=== PATIENT | female | born 1980 | race Two or more races ===

== ENCOUNTER 2016-05-07 19:17 | Emergency (ER) | payer MEDICAID ==
[~2016-05-07] VITALS: Ht 149.9 cm; Wt 72.6 kg
[2016-05-07] MEDS ORDERED: MORPHINE SULFATE INJ 4 MG/ML DISP.SYRIN ONE (20:12)
[2016-05-07] MEDS ORDERED: ONDANSETRON HCL/PF 4 MG/2 ML VIAL ONE (20:12)
[2016-05-07 20:20] LABS: KETONES,URINE Negative (NEGATIVE); LEUKOCYTE ESTERASE ,URINE Negative (NEGATIVE)
[2016-05-07 20:21] LABS: BASOPHILS % (AUTO) 0.4 % (0.0-2.0); DIFF TOTAL % 100 %; EOSINOPHILS # (AUTO) 0.2 /CMM (0.0-0.7); EOSINOPHILS % (AUTO) 1.9 % (0.0-6.0); HEMATOCRIT 34 % (33-45); HEMOGLOBIN 11.6 g/dL (11.5-14.8); LYMPHOCYTES # (AUTO) 2.9 /CMM (0.8-4.8); LYMPHOCYTES % (AUTO) 29.6 % (20.0-44.0); MEAN CORPUSCULAR HEMOGLOBIN 31 PG (26.0-33.0); MEAN CORPUSCULAR HGB CONC 34 g/dl (31.0-36.0); MEAN CORPUSCULAR VOLUME 89 fL (82-100); MONOCYTES # (AUTO) 0.9 /CMM (0.1-1.30); MONOCYTES % (AUTO) 9.3 % (2.0-12.0); NEUTROPHILS # (AUTO) 5.9 /CMM (1.8-8.9); NEUTROPHILS % (AUTO) 58.8 % (43.0-81.0); PLATELET COUNT (AUTO) 178 /CMM (150-450); RED BLOOD CELL COUNT(AUTO) 3.79 MIL/uL (4.0-5.2); WHITE BLOOD COUNT (AUTO) 9.9 K/uL (4.3-11.0)
[2016-05-07 20:23] LABS: ADD UA MICROSCOPIC YES
[2016-05-07 20:30] LABS: CALCIUM, SERUM 9.1 mg/dL (8.5-10.1); CREATININE 0.6 mg/dL (0.6-1.3)
[2016-05-07] MEDS ORDERED: ONDANSETRON HCL/PF 4 MG/2 ML VIAL IV ONE (20:30)
[2016-05-07] MEDS ORDERED: MORPHINE SULFATE INJ 2 MG/ML DISP.SYRIN IV ONE (20:30)
[2016-05-07 20:31] LABS: PREGNANCY TEST URINE QUAL NEGATIVE (NEGATIVE)
[2016-05-07 20:33] LABS: ADD URINE CULTURE NO; RBC,URINE 0-2 /HPF (0-2); WBC,URINE 0-2 /HPF (0-3)
[2016-05-07 20:40] LABS: ALBUMIN 3.8 g/dL (3.4-5.0); BILIRUBIN,DIRECT 0.1 mg/dL (0.0-0.2); BILIRUBIN,TOTAL 0.3 mg/dL (0.2-1.0); INDIRECT BILIRUBIN 0.2 mg/dL (0.0-1.1); TOTAL PROTEIN, SERUM 7.9 g/dL (6.4-8.2)
[2016-05-07] MEDS ORDERED: KETOROLAC TROMETHAMINE INJ 30 MG/ML VIAL IV ONE (21:30)
[2016-05-07] MEDS ORDERED: KETOROLAC TROMETHAMINE INJ 30 MG/ML VIAL ONE (21:38)
[2016-05-07 21:46] VITALS: BP 127/73
== END 2016-05-07 21:49 | disposition home or self-care (01) ==
LOC: ER 19:21
DX: R10.84 Generalized abdominal pain (principal)
CPT/HCPCS: 36415; 74176; 80048; 80076; 81001; 83690; 84703; 85025; 96374; 96375; 99285; A4606; J1885; J2270; J2405; Z7610; 81000-TC

== ENCOUNTER 2016-08-07 15:27 | Emergency (ER) | payer MEDICAID ==
[~2016-08-07] VITALS: Ht 144.8 cm; Wt 72.6 kg
--- NOTE | 2016-08-07 15:51 | NUR ---
PRESENTS SELF TO ED DUE TO RIGHT KNEE SWELLING X4 DAYS PRESSER AND BLOCKER KNITTED GOODS, NON TRAUMATIC. PATIENT IS AMBULATORY. VSS.
[2016-08-07] MEDS ORDERED: KETOROLAC TROMETHAMINE INJ 60 MG/2 ML VIAL IM ONE ×2 (16:29→16:30)
--- NOTE | 2016-08-07 17:48 | NUR ---
Patient is resting comfortably in bed VSS
[2016-08-07 18:09] VITALS: BP 112/78
--- NOTE | 2016-08-07 18:09 | NUR ---
Patient discharged to home in stable condition. Written and verbal after care instructions given. Patient verbalizes understanding of instruction.
== END 2016-08-07 18:10 | disposition home or self-care (01) ==
LOC: ER 15:29
DX: R51 Headache (principal); M79.641 Pain in right hand; M79.605 Pain in left leg; M79.604 Pain in right leg; R20.2 Paresthesia of skin
CPT/HCPCS: 70450; 82962; 84703; 96372; 99284; A4606; J1885; Z7610

== ENCOUNTER 2016-11-30 21:01 | Emergency (ER) | payer MEDICAID ==
[~2016-11-30] VITALS: Ht 157.5 cm; Wt 59.0 kg
--- NOTE | 2016-12-01 | NUR ---
PT BIB FAMILY, PT C/O BOTH OF HER HANDS FALLING ASLEEP AND HURTING X 5 DAYS. PT AOX3 [place]TS[place] SPEAKING. RR EVEN AND UNLABORED. NO SOB NOTED. NAD NOTED. NO NVD AT THIS JULIO.E PT GOWNED AND PLACED ON MONITOR WAITING FOR MD FLORES.
--- NOTE | 2016-12-01 00:10 | NUR ---
DR. RAIN AT BEDSIDE FOR COLLEEN FLORES, EMT AT BEDSIDE TO TRANSLATE.
--- NOTE | 2016-12-01 00:10 | NUR ---
Charles allen in [place] - 12/01/[address] RAIN AT [facility] FOR
[2016-12-01 00:48] LABS: BASOPHILS % (AUTO) 0.3 % (0.0-2.0); EOSINOPHILS # (AUTO) 0.2 /CMM (0.0-0.7); EOSINOPHILS % (AUTO) 1.9 % (0.0-6.0); HEMATOCRIT 33 % (33-45); HEMOGLOBIN 10.9 g/dL (11.5-14.8); LYMPHOCYTES # (AUTO) 3.3 /CMM (0.8-4.8); LYMPHOCYTES % (AUTO) 38.6 % (20.0-44.0); MEAN CORPUSCULAR HEMOGLOBIN 30 PG (26.0-33.0); MEAN CORPUSCULAR HGB CONC 33 g/dl (31.0-36.0); MEAN CORPUSCULAR VOLUME 91 fL (82-100); MONOCYTES # (AUTO) 0.7 /CMM (0.1-1.30); MONOCYTES % (AUTO) 8.2 % (2.0-12.0); NEUTROPHILS # (AUTO) 4.4 /CMM (1.8-8.9); PLATELET COUNT (AUTO) 185 /CMM (150-450); RDW COEFFICIENT OF VARIATION 14.5 (11.5-15.0); RED BLOOD CELL COUNT(AUTO) 3.62 MIL/uL (4.0-5.2); WHITE BLOOD COUNT (AUTO) 8.7 K/uL (4.3-11.0)
[2016-12-01 01:05] LABS: CALCIUM, SERUM 8.6 mg/dL (8.5-10.1); CREATININE 0.7 mg/dL (0.6-1.3); POTASSIUM 3.9 mmol/L (3.5-5.1)
--- NOTE | 2016-12-01 01:56 | NUR ---
PT TO RADIOLOGY FOR CT
--- NOTE | 2016-12-01 02:52 | NUR ---
DR RAIN AT BEDSIDE SPEAKING TO PT REGARDING RESULTS.
[2016-12-01 03:16] VITALS: BP 112/68
--- NOTE | 2016-12-01 03:22 | NUR ---
IV removed. Catheter intact and site benign. Pressure and 4x4 applied to site. No bleeding noted. Patient discharged to home in stable condition. Written and verbal after care instructions given. Patient verbalizes understanding of instruction. ambulatory with a steady gait. instructed not to drive. pt verbalize understanding.
== END 2016-12-01 03:23 | disposition home or self-care (01) ==
LOC: ER 21:04
DX: M54.12 Radiculopathy, cervical region (principal); M79.1 Myalgia
CPT/HCPCS: 36415; 72125-TC; 80048-TC; 85025-TC; 93930-TC; 93971-TC; A4606; J2270; J2405; J7040; J7050; Q9967; Z7610

== ENCOUNTER 2017-09-01 14:01 | Emergency (ER) | payer MEDICAID, OTHER ==
[~2017-09-01] VITALS: Ht 149.9 cm; Wt 72.6 kg
--- NOTE | 2017-09-01 14:09 | NUR ---
A/OX4, RT FLANK PAIN GOING TO RT LOWER ABD X 1 MONTH, ALSO COMPLAINING OF VAGINAL AREA SWELLING AND DSICHARGE X YESTERDAY. NAD VSS RR EVEN AND UNLABORED FACIAL GRIAMCING NOTED PENINGD ER MD FLORES;
--- NOTE | 2017-09-01 15:10 | NUR ---
IV ACCESS STARTED. BLOOD DRAWN FOR LABS.
[2017-09-01] MEDS ORDERED: ONDANSETRON HCL/PF 4 MG/2 ML VIAL ONE (15:14)
[2017-09-01] MEDS ORDERED: MORPHINE SULFATE INJ 4 MG/ML DISP.SYRIN ONE (15:14)
[2017-09-01 15:16] LABS: APPEARANCE,URINE Clear (CLEAR); BILIRUBIN,URINE Negative (NEGATIVE); BLOOD, URINE Negative Ery/uL (NEGATIVE); COLOR,URINE Yellow (YELLOW); KETONES,URINE Negative (NEGATIVE); LEUKOCYTE ESTERASE ,URINE Negative (NEGATIVE); NITRITE, URINE Negative (NEGATIVE); PROTEIN,URINE Negative (NEGATIVE); UGLUCOSE Negative (NEGATIVE); UROBILINOGEN,URINE 0.2 EU/dL (0.2)
[2017-09-01 15:29] LABS: BASOPHILS % (AUTO) 0.3 % (0.0-2.0); EOSINOPHILS % (AUTO) 1.5 % (0.0-6.0); HEMATOCRIT 33 % (33-45); HEMOGLOBIN 11.3 g/dL (11.5-14.8); LYMPHOCYTES # (AUTO) 2.4 /CMM (0.8-4.8); MEAN CORPUSCULAR HEMOGLOBIN 31 PG (26.0-33.0); MEAN CORPUSCULAR HGB CONC 35 g/dl (31.0-36.0); MEAN CORPUSCULAR VOLUME 91 fL (82-100); MONOCYTES # (AUTO) 0.8 /CMM (0.1-1.30); MONOCYTES % (AUTO) 9.4 % (2.0-12.0); NEUTROPHILS % (AUTO) 59.8 % (43.0-81.0); PLATELET COUNT (AUTO) 200 /CMM (150-450); RDW COEFFICIENT OF VARIATION 13.9 (11.5-15.0); RED BLOOD CELL COUNT(AUTO) 3.62 MIL/uL (4.0-5.2); WHITE BLOOD COUNT (AUTO) 8.3 K/uL (4.3-11.0)
[2017-09-01] MEDS ORDERED: MORPHINE SULFATE INJ 2 MG/ML DISP.SYRIN IV ONE (15:30)
[2017-09-01] MEDS ORDERED: ONDANSETRON HCL/PF 4 MG/2 ML VIAL IVP ONE (15:30)
[2017-09-01 15:41] LABS: CALCIUM, SERUM 9.4 mg/dL (8.5-10.1); CREATININE 0.6 mg/dL (0.6-1.3)
[2017-09-01 15:47] LABS: ALBUMIN 3.6 g/dL (3.4-5.0); BILIRUBIN,DIRECT 0.1 mg/dL (0.0-0.2); BILIRUBIN,TOTAL 0.3 mg/dL (0.2-1.0); TOTAL PROTEIN, SERUM 7.4 g/dL (6.4-8.2)
[2017-09-01] MEDS ORDERED: HYDROMORPHONE INJ 0.5 MG/0.5 ML SYRINGE IV ONE (16:00)
[2017-09-01] MEDS ORDERED: HYDROMORPHONE INJ 2 MG/ML DISP.SYRIN ONE (16:34)
[2017-09-01] MEDS ORDERED: KETOROLAC TROMETHAMINE INJ 30 MG/ML VIAL IV ONE (17:00)
[2017-09-01] MEDS ORDERED: KETOROLAC TROMETHAMINE INJ 30 MG/ML VIAL ONE (17:07)
--- NOTE | 2017-09-01 17:46 | NUR ---
Paged Dr Velez, Dr Brennan is talking on the phone with her.
[2017-09-01] MEDS ORDERED: AZITHROMYCIN 250 MG TABLET PO ONE (18:00)
[2017-09-01] MEDS ORDERED: CEFTRIAXONE 500 MG VIAL IM ONE (18:00)
[2017-09-01] MEDS ORDERED: CEFTRIAXONE 500 MG VIAL ONE (18:02)
[2017-09-01] MEDS ORDERED: AZITHROMYCIN 250 MG TABLET ONE (18:02)
[2017-09-01] MEDS ORDERED: LIDOCAINE /MPF 1% VIAL 5 ML VIAL ONE (18:03)
--- NOTE | 2017-09-01 18:28 | NUR ---
Patient discharged to home in stable condition. Written and verbal after care instructions given. Patient verbalizes understanding of instruction.
--- NOTE | 2017-09-01 18:28 | NUR ---
IV removed. Catheter intact and site benign. Pressure and 4x4 applied to site. No bleeding noted.
[2017-09-01 18:31] VITALS: BP 112/71
== END 2017-09-01 18:33 | disposition home or self-care (01) ==
LOC: ER 14:04
DX: R10.31 Right lower quadrant pain (principal); N89.8 Other specified noninflammatory disorders of vagina; Z88.6 Allergy status to analgesic agent; Z98.890 Other specified postprocedural states
CPT/HCPCS: 36415; 76770-TC; 76856-TC; 80048-TC; 80076-TC; 81000-TC; 84703-TC; 85025-TC; 87086-TC; 87491; 87591; A4606; J0696; J1170; J1885; J2270; J2405; J3490; Z7610

== ENCOUNTER 2018-12-22 20:08 | Emergency (ER) | payer OTHER ==
[~2018-12-22] VITALS: Ht 152.4 cm; Wt 77.1 kg
[2018-12-22 20:14] VITALS: BP 125/73
--- NOTE | 2018-12-22 20:21 | NUR ---
SEEN AND EXAMINED BY
--- NOTE | 2018-12-22 20:31 | NUR ---
PEDIATRICS PHYSICIAN AT BEDSIDE FOR XRAY.
[2018-12-22] MEDS ORDERED: IBUPROFEN 600 MG TABLET PO ONE ×2 (20:49→21:00)
--- NOTE | 2018-12-22 21:26 | NUR ---
Patient discharged to home in stable condition. Written and verbal after care instructions given. Patient verbalizes understanding of instruction.
== END 2018-12-22 21:27 | disposition home or self-care (01) ==
LOC: ER 20:15
DX: S63.592A Other specified sprain of left wrist, initial encounter (principal); Z98.890 Other specified postprocedural states; Z88.5 Allergy status to narcotic agent; X58.XXXA Exposure to other specified factors, initial encounter; Y93.89 Activity, other specified; Y92.89 Other specified places as the place of occurrence of the external cause; Y99.8 Other external cause status
CPT/HCPCS: 73110; 73130-TC

== ENCOUNTER 2019-01-08 13:06 | Emergency (ER) | payer OTHER ==
[~2019-01-08] VITALS: Ht 152.4 cm; Wt 79.8 kg
--- NOTE | 2019-01-08 13:43 | NUR ---
URINE SAMPLE COLLECTED AND SENT TO LAB
[2019-01-08 13:49] LABS: APPEARANCE,URINE Clear (CLEAR); BILIRUBIN,URINE Negative (NEGATIVE); BLOOD, URINE Trace-intact Ery/uL (NEGATIVE); COLOR,URINE Yellow (YELLOW); KETONES,URINE Negative (NEGATIVE); LEUKOCYTE ESTERASE ,URINE Negative (NEGATIVE); NITRITE, URINE Negative (NEGATIVE); PROTEIN,URINE Negative (NEGATIVE); UGLUCOSE Negative (NEGATIVE); UROBILINOGEN,URINE 0.2 EU/dL (0.2)
[2019-01-08 13:53] LABS: BACTERIA,URINE None seen /HPF (None Seen); RBC,URINE 0-2 /HPF (0-2); SQUAMOUS EPITHELIAL CELL,UR Few /HPF (None Seen); WBC,URINE NONE SEEN /HPF (0-3)
[2019-01-08] MEDS ORDERED: KETOROLAC TROMETHAMINE INJ 30 MG/ML VIAL IV ONE (14:30)
[2019-01-08] MEDS ORDERED: MORPHINE SULFATE INJ 2 MG/ML DISP.SYRIN IV ONE (14:30)
[2019-01-08 14:39] LABS: BASOPHILS % (AUTO) 0.3 % (0.0-2.0); EOSINOPHILS % (AUTO) 2.2 % (0.0-6.0); HEMATOCRIT 35 % (33-45); HEMOGLOBIN 11.7 g/dL (11.5-14.8); LYMPHOCYTES # (AUTO) 2.2 /CMM (0.8-4.8); LYMPHOCYTES % (AUTO) 25.8 % (20.0-44.0); MEAN CORPUSCULAR HGB CONC 34 g/dl (31.0-36.0); MEAN CORPUSCULAR VOLUME 94 fL (82-100); MONOCYTES # (AUTO) 0.7 /CMM (0.1-1.30); MONOCYTES % (AUTO) 8.3 % (2.0-12.0); NEUTROPHILS # (AUTO) 5.3 /CMM (1.8-8.9); NEUTROPHILS % (AUTO) 63.4 % (43.0-81.0); PLATELET COUNT (AUTO) 176 /CMM (150-450); RED BLOOD CELL COUNT(AUTO) 3.69 MIL/uL (4.0-5.2); WHITE BLOOD COUNT (AUTO) 8.4 K/uL (4.3-11.0)
--- NOTE | 2019-01-08 14:39 | NUR ---
WHEELED OUT VIA RNEY FOR CT SCAN
[2019-01-08] MEDS ORDERED: ONDANSETRON HCL/PF 4 MG/2 ML VIAL ONE (14:52)
[2019-01-08] MEDS ORDERED: KETOROLAC TROMETHAMINE 15 MG/ML VIAL ONE (14:52)
[2019-01-08] MEDS ORDERED: MORPHINE SULFATE INJ 4 MG/ML DISP.SYRIN ONE (14:52)
[2019-01-08] MEDS ORDERED: ONDANSETRON HCL/PF 4 MG/2 ML VIAL IV ONE (15:00)
[2019-01-08 15:06] LABS: CALCIUM, SERUM 9.3 mg/dL (8.5-10.1); CREATININE 0.6 mg/dL (0.6-1.3); POTASSIUM 3.7 mmol/L (3.5-5.1)
[2019-01-08 15:11] LABS: ALBUMIN 3.7 g/dL (3.4-5.0); BILIRUBIN,DIRECT 0.1 mg/dL (0.0-0.2); BILIRUBIN,TOTAL 0.3 mg/dL (0.2-1.0); TOTAL PROTEIN, SERUM 7.6 g/dL (6.4-8.2)
--- NOTE | 2019-01-08 16:42 | NUR ---
IV removed. Catheter intact and site benign. Pressure and 4x4 applied to site. No bleeding noted.Patient discharged to home in stable condition. Written and verbal after care instructions given. Patient verbalizes understanding of instruction.
[2019-01-08 16:59] VITALS: BP 106/65
== END 2019-01-08 15:32 | disposition home or self-care (01) ==
LOC: ER 13:06
DX: R10.9 Unspecified abdominal pain (principal); Z87.442 Personal history of urinary calculi; Z98.890 Other specified postprocedural states
CPT/HCPCS: 36415; 74176; 80048; 80076; 81001; 83690; 84703; 85025; 96374; 96375; 99284; J1885; J2270; J2405; 81000-TC

== ENCOUNTER 2021-01-12 23:40 | Emergency (ER) | payer OTHER ==
[~2021-01-12] VITALS: Ht 152.4 cm; Wt 77.1 kg
--- NOTE | 2021-01-13 00:40 | NUR ---
PT BIBSELF C/O MIDEPIGASTRIC PAIN, BODY ACHES, AND DIAHRREA X1 DAY. PT AAOX 4 BREATHING EVENLY AND UNLABORED. PT TOOK 800MG IBUPROFEN, BUT FELT NO RELIEF. PT ATTACHED TO MONITOR AND POX. MD AT BEDSIDE. LEFT AC 20G INITIATED. PT GIVE BLANKET AND CALL LIGHT WITHIN REACH
[2021-01-13] MEDS ORDERED: ONDANSETRON HCL/PF 4 MG/2 ML VIAL ONE (00:51)
[2021-01-13] MEDS ORDERED: MORPHINE SULFATE INJ 4 MG/ML DISP.SYRIN ONE (00:51)
[2021-01-13] MEDS ORDERED: IV NS 0.9% 1,000 ML BAG IV ONE (01:00)
[2021-01-13] MEDS ORDERED: ONDANSETRON HCL/PF 4 MG/2 ML VIAL IVP ONE (01:00)
[2021-01-13] MEDS ORDERED: MORPHINE SULFATE INJ 2 MG/ML DISP.SYRIN IV ONE (01:00)
--- NOTE | 2021-01-13 01:03 | NUR ---
lab at bedside
[2021-01-13 01:30] LABS: BASOPHILS % (AUTO) 0.2 % (0.0-2.0); EOSINOPHILS % (AUTO) 2.6 % (0.0-6.0); HEMATOCRIT 31 % (33-45); HEMOGLOBIN 10.1 g/dL (11.5-14.8); LYMPHOCYTES % (AUTO) 29.9 % (20.0-44.0); MEAN CORPUSCULAR HGB CONC 33 g/dl (31.0-36.0); MEAN CORPUSCULAR VOLUME 97 fL (82-100); MONOCYTES # (AUTO) 0.6 K/uL (0.1-1.30); MONOCYTES % (AUTO) 8.6 % (2.0-12.0); NEUTROPHILS # (AUTO) 3.9 K/uL (1.8-8.9); NEUTROPHILS % (AUTO) 58.7 % (43.0-81.0); PLATELET COUNT (AUTO) 161 K/uL (150-450); RED BLOOD CELL COUNT(AUTO) 3.17 MIL/uL (4.0-5.2); WHITE BLOOD COUNT (AUTO) 6.6 K/uL (4.3-11.0)
[2021-01-13 01:41] LABS: ALANINE AMINOTRANSFERASE 59 U/L (12-78); ALBUMIN 3.4 g/dL (3.4-5.0); ALKALINE PHOSPHATASE 76 U/L (46-116); ASPARTATE AMINOTRANSFERASE 45 U/L (15-37); BILIRUBIN,DIRECT 0.1 mg/dL (0.0-0.2); BILIRUBIN,TOTAL 0.4 mg/dL (0.2-1.0); CALCIUM, SERUM 8.2 mg/dL (8.5-10.1); CARBON DIOXIDE 25 mmol/L (21-32); CHLORIDE 105 mmol/L (98-107); CREATININE 0.7 mg/dL (0.6-1.3); GLUCOSE 90 mg/dL (74-106); LIPASE 80 U/L (73-393); POTASSIUM 3.6 mmol/L (3.5-5.1); SODIUM SERUM 140 mmol/L (136-145); TOTAL PROTEIN, SERUM 7.3 g/dL (6.4-8.2); UREA NITROGEN, BLOOD 15 mg/dL (7-18)
--- NOTE | 2021-01-13 01:44 | NUR ---
covid swab sent to lab
[2021-01-13 01:50] LABS: BILIRUBIN,URINE NEGATIVE (NEGATIVE); COLOR,URINE YELLOW (YELLOW); LEUKOCYTE ESTERASE ,URINE NEGATIVE (NEGATIVE); NITRITE, URINE NEGATIVE (NEGATIVE); PH,URINE 6.5 (5.0-8.0); PROTEIN,URINE NEGATIVE (NEGATIVE); UGLUCOSE NEGATIVE (NEGATIVE); UROBILINOGEN,URINE 0.2 EU/dL (0.2)
--- NOTE | 2021-01-13 02:11 | NUR ---
returned from xray
--- NOTE | 2021-01-13 03:23 | NUR ---
called seth to have image read
[2021-01-13] MEDS ORDERED: PANT40TA2 PO (04:51)
--- NOTE | 2021-01-13 04:54 | NUR ---
Patient discharged to home in stable condition. Written and verbal after care instructions given. Patient verbalizes understanding of instruction. IV removed. Catheter intact and site benign. Pressure and 4x4 applied to site. No bleeding noted. pt ambulatory with a steady gait
[2021-01-13 05:05] VITALS: BP 118/78
[2021-01-13 07:01] LABS: BACTERIA,URINE Few /HPF (None Seen); SQUAMOUS EPITHELIAL CELL,UR Few /HPF (None Seen); WBC,URINE 0-2 /HPF (0-3)
== END 2021-01-13 04:54 | disposition home or self-care (01) ==
LOC: ER 23:42
DX: K29.70 Gastritis, unspecified, without bleeding (principal); Z20.822 Contact with and (suspected) exposure to COVID-19; K76.0 Fatty (change of) liver, not elsewhere classified
CPT/HCPCS: 36415; 74176; 80048; 80076; 81001; 83690; 84484; 84703; 85025; 87426; 93005; 96361; 96374; 96375; 99285; C9803; J2270; J2405; J7030

== ENCOUNTER 2021-08-02 09:41 | Emergency (ER) | payer OTHER ==
[~2021-08-02] VITALS: Ht 152.4 cm; Wt 79.4 kg
[~2021-08-02 09:41] MED LIST: PANT40TA2 PO
--- NOTE | 2021-08-02 09:41 | NUR ---
PT BIB SELF C/O LOWER BACK PAIN AND FREQUENT URINATION X 3 DAYS. PT IS AAOX4, NOT IN RESPIRATORY DISTRESS, V/S STABLE, KEPT RESTED AND COMFORTABLE. WILL CONTINUE TO MONITOR.
--- NOTE | 2021-08-02 10:09 | NUR ---
URINE SPECIMEN COLLECTED AND SENT TO LAB.
--- NOTE | 2021-08-02 10:22 | NUR ---
SEEN AND EXAMINED BY .
[2021-08-02] MEDS ORDERED: KETOROLAC TROMETHAMINE INJ 30 MG/ML VIAL IM ONE (10:30)
[2021-08-02 10:47] LABS: BILIRUBIN,URINE NEGATIVE (NEGATIVE); COLOR,URINE YELLOW (YELLOW); LEUKOCYTE ESTERASE ,URINE NEGATIVE (NEGATIVE); NITRITE, URINE NEGATIVE (NEGATIVE); PH,URINE 7.5 (5.0-8.0); PROTEIN,URINE NEGATIVE (NEGATIVE); UGLUCOSE NEGATIVE (NEGATIVE)
[2021-08-02] MEDS ORDERED: KETOROLAC TROMETHAMINE 15 MG/ML VIAL ONE (11:16)
[2021-08-02 11:35] LABS: BACTERIA,URINE Moderate /HPF (None Seen); RBC,URINE 0-2 /HPF (0-2); SQUAMOUS EPITHELIAL CELL,UR Moderate /HPF (None Seen); WBC,URINE 0-2 /HPF (0-3)
[2021-08-02 12:26] VITALS: BP 121/72
== END 2021-08-02 12:26 | disposition home or self-care (01) ==
LOC: ER 09:46
DX: M54.50 Low back pain, unspecified (principal); Z79.899 Other long term (current) drug therapy
CPT/HCPCS: 74176; 81001; 84703; 87086; 96372; 99284; J1885

== ENCOUNTER 2021-11-28 11:58 | Emergency (ER) | payer OTHER ==
[~2021-11-28] VITALS: Ht 152.4 cm; Wt 80.7 kg
--- NOTE | 2021-11-28 12:30 | NUR ---
RECEIVED PT 41 YRS FEMALE CAME FROM HOME C/O EPGASTRIC PAIN
[2021-11-28] MEDS ORDERED: MAG HYDROX/AL HYDROX/SIMETH 30 ML UDC ONE (12:42)
[2021-11-28] MEDS ORDERED: LIDOCAINE VISCOUS 2% UD 15 ML UDC ONE (12:43)
--- NOTE | 2021-11-28 12:47 | NUR ---
URINE SAMPLE COLLECTED AND SENT TO LAB
--- NOTE | 2021-11-28 12:50 | NUR ---
SEEN BY DR. BINGHAM
[2021-11-28 12:53] LABS: BASOPHILS % (AUTO) 0.3 % (0.0-2.0); EOSINOPHILS % (AUTO) 2.1 % (0.0-6.0); HEMATOCRIT 35 % (33-45); HEMOGLOBIN 11.2 g/dL (11.5-14.8); LYMPHOCYTES % (AUTO) 31.5 % (20.0-44.0); MEAN CORPUSCULAR HGB CONC 32 g/dl (31.0-36.0); MEAN CORPUSCULAR VOLUME 91 fL (82-100); MONOCYTES # (AUTO) 0.6 K/uL (0.1-1.30); MONOCYTES % (AUTO) 10.2 % (2.0-12.0); NEUTROPHILS # (AUTO) 3.5 K/uL (1.8-8.9); NEUTROPHILS % (AUTO) 55.9 % (43.0-81.0); PLATELET COUNT (AUTO) 198 K/uL (150-450); RED BLOOD CELL COUNT(AUTO) 3.79 MIL/uL (4.0-5.2); WHITE BLOOD COUNT (AUTO) 6.3 K/uL (4.3-11.0)
--- NOTE | 2021-11-28 12:55 | NUR ---
BLOOD DROW BY LAB TACH
[2021-11-28] MEDS ORDERED: LIDOCAINE VISCOUS 2% UD 15 ML UDC MM ONE (13:00)
[2021-11-28] MEDS ORDERED: MAG HYDROX/AL HYDROX/SIMETH 30 ML UDC PO ONE (13:00)
[2021-11-28 13:04] LABS: BILIRUBIN,URINE NEGATIVE (NEGATIVE); COLOR,URINE YELLOW (YELLOW); LEUKOCYTE ESTERASE ,URINE NEGATIVE (NEGATIVE); NITRITE, URINE NEGATIVE (NEGATIVE); PROTEIN,URINE NEGATIVE (NEGATIVE); UGLUCOSE NEGATIVE (NEGATIVE); UROBILINOGEN,URINE 0.2 EU/dL (0.2)
[2021-11-28 13:11] LABS: ALBUMIN 3.6 g/dL (3.4-5.0); BILIRUBIN,DIRECT 0.1 mg/dL (0.0-0.2); BILIRUBIN,TOTAL 0.4 mg/dL (0.2-1.0); CALCIUM, SERUM 8.9 mg/dL (8.5-10.1); CREATININE 0.7 mg/dL (0.6-1.3); POTASSIUM 3.9 mmol/L (3.5-5.1); TOTAL PROTEIN, SERUM 7.9 g/dL (6.4-8.2)
[2021-11-28] MEDS ORDERED: MAG-55 PO (13:26)
--- NOTE | 2021-11-28 13:30 | NUR ---
LAW GREGORIO AT BED SIDE SPOOK WITH PT lab result AND PLAN OF CARE
[2021-11-28 14:05] LABS: BACTERIA,URINE None seen /HPF (None Seen); RBC,URINE NONE SEEN /HPF (0-2); SQUAMOUS EPITHELIAL CELL,UR Few /HPF (None Seen); WBC,URINE NONE SEEN /HPF (0-3)
--- NOTE | 2021-11-28 14:15 | NUR ---
Patient discharged to home in stable condition. Written and verbal after care instructions given. Patient verbalizes understanding of instruction.
[2021-11-28 14:17] VITALS: BP 118/64
== END 2021-11-28 14:18 | disposition home or self-care (01) ==
LOC: ER 12:30
DX: K29.70 Gastritis, unspecified, without bleeding (principal); Z79.899 Other long term (current) drug therapy
CPT/HCPCS: 36415; 80048-TC; 80076-TC; 81001; 83690-TC; 84703-TC; 85025-TC

== ENCOUNTER 2023-01-20 04:22 | Emergency (ER) | payer OTHER ==
[~2023-01-20] VITALS: Ht 152.4 cm; Wt 82.6 kg
[~2023-01-20 04:22] MED LIST changes: +MAG-55 PO
[2023-01-20] MEDS ORDERED: CYCLOBENZAPRINE 10 MG TABLET PO ONE (05:00)
[2023-01-20] MEDS ORDERED: IBUPROFEN 600 MG TABLET PO ONE (05:00)
[2023-01-20] MEDS ORDERED: CYCLOBENZAPRINE 10 MG TABLET ONE (05:03)
[2023-01-20] MEDS ORDERED: IBUPROFEN 600 MG TABLET ONE (05:03)
[2023-01-20] MEDS ORDERED: CYCL5TAB PO (05:29)
[2023-01-20 06:23] VITALS: BP 112/74; TEMP 98; O2SAT 100
== END 2023-01-20 06:23 | disposition home or self-care (01) ==
LOC: ER 04:26
DX: M79.10 Myalgia, unspecified site (principal); V89.2XXA Person injured in unspecified motor-vehicle accident, traffic, initial encounter; Y93.89 Activity, other specified; Y92.89 Other specified places as the place of occurrence of the external cause; Y99.8 Other external cause status

== ENCOUNTER 2023-05-31 05:59 | Emergency (ER) | payer OTHER ==
[~2023-05-31] VITALS: Ht 160 cm; Wt 77.1 kg
[~2023-05-31 05:59] MED LIST changes: +CYCL5TAB PO
[2023-05-31 06:23] VITALS: TEMP 98.4
[2023-05-31] MEDS ORDERED: KETOROLAC TROMETHAMINE 15 MG/ML VIAL ONE (06:49)
[2023-05-31] MEDS: KETOROLAC TROMETHAMINE 15 MG/ML VIAL IV ONE (06:54)
[2023-05-31 07:27] LABS: BASOPHILS % (AUTO) 0.3 % (0.0-2.0); EOSINOPHILS # (AUTO) 0.1 K/uL (0.0-0.7); EOSINOPHILS % (AUTO) 1.7 % (0.0-6.0); HEMATOCRIT 34 % (33-45); HEMOGLOBIN 11.6 g/dL (11.5-14.8); MEAN CORPUSCULAR HEMOGLOBIN 32 PG (26.0-33.0); MEAN CORPUSCULAR HGB CONC 34 g/dl (31.0-36.0); MEAN CORPUSCULAR VOLUME 95 fL (82-100); MONOCYTES # (AUTO) 0.7 K/uL (0.1-1.30); MONOCYTES % (AUTO) 9.9 % (2.0-12.0); NEUTROPHILS # (AUTO) 4.3 K/uL (1.8-8.9); NEUTROPHILS % (AUTO) 60.1 % (43.0-81.0); PLATELET COUNT (AUTO) 163 K/uL (150-450); RED BLOOD CELL COUNT(AUTO) 3.61 MIL/uL (4.0-5.2); RED CELL DISTRIBUTION WIDTH 13.9 % (11.5-15.0); WHITE BLOOD COUNT (AUTO) 7.2 K/uL (4.3-11.0)
[2023-05-31 07:30] LABS: APPEARANCE,URINE SLIGHTLY CLOUDY (CLEAR); BILIRUBIN,URINE NEGATIVE (NEGATIVE); BLOOD, URINE 2+ Ery/uL (NEGATIVE); COLOR,URINE DARK YELLOW (YELLOW); KETONES,URINE NEGATIVE (NEGATIVE); LEUKOCYTE ESTERASE ,URINE TRACE (NEGATIVE); NITRITE, URINE NEGATIVE (NEGATIVE); PROTEIN,URINE 2+ mg/dl (NEGATIVE); UGLUCOSE NEGATIVE (NEGATIVE); UROBILINOGEN,URINE 0.2 EU/dL (0.2)
[2023-05-31 07:32] LABS: ADD URINE CULTURE NO; BACTERIA,URINE Rare /HPF (None Seen); PREGNANCY TEST URINE QUAL NEGATIVE (NEGATIVE); SQUAMOUS EPITHELIAL CELL,UR Rare /HPF (None Seen)
[2023-05-31 07:38] LABS: CREATININE 0.7 mg/dL (0.6-1.3); POTASSIUM 3.6 mmol/L (3.5-5.1)
[2023-05-31 07:43] LABS: ALBUMIN 3.3 g/dL (3.4-5.0); BILIRUBIN,DIRECT 0.1 mg/dL (0.0-0.2); BILIRUBIN,TOTAL 0.5 mg/dL (0.2-1.0); CALCIUM, SERUM 9.1 mg/dL (8.5-10.1); TOTAL PROTEIN, SERUM 7.6 g/dL (6.4-8.2)
[2023-05-31] MEDS ORDERED: KETOROLAC TROMETHAMINE INJ 30 MG/ML VIAL ONE (08:03)
[2023-05-31] MEDS: KETOROLAC TROMETHAMINE INJ 30 MG/ML VIAL IV ONE (08:09)
[2023-05-31] MEDS ORDERED: CIPR-262 PO (08:47)
[2023-05-31] MEDS ORDERED: CIPROFLOXACIN HCL 500 MG TABLET ONE (09:07)
[2023-05-31] MEDS ORDERED: NAPR-1164 PO (09:14)
[2023-05-31] MEDS: CIPROFLOXACIN HCL 500 MG TABLET PO ONE (09:16)
[2023-05-31 09:17] VITALS: BP 145/80; O2SAT 99
== END 2023-05-31 09:21 | disposition home or self-care (01) ==
LOC: ER 06:02
DX: N39.0 Urinary tract infection, site not specified (principal); R10.2 Pelvic and perineal pain
CPT/HCPCS: 99285; 74176; 96374; 96375; 85025; 80048; 87086; 80076; 84703; 81001; 36415; 84702; J1885 ×2

== ENCOUNTER 2023-07-07 10:03 | Inpatient (IN) | payer OTHER ==
[~2023-07-07] VITALS: Ht 175.3 cm; Wt 84.4 kg
[~2023-07-07 10:03] MED LIST changes: +CIPR-262 PO; +NAPR-1164 PO
[2023-07-07 10:34] LABS: BASOPHILS % (AUTO) 0.4 % (0.0-2.0); EOSINOPHILS # (AUTO) 0.1 K/uL (0.0-0.7); EOSINOPHILS % (AUTO) 2.4 % (0.0-6.0); HEMATOCRIT 34 % (33-45); HEMOGLOBIN 11.3 g/dL (11.5-14.8); LYMPHOCYTES # (AUTO) 2.6 K/uL (0.8-4.8); LYMPHOCYTES % (AUTO) 46.1 % (20.0-44.0); MEAN CORPUSCULAR HEMOGLOBIN 31 PG (26.0-33.0); MEAN CORPUSCULAR HGB CONC 33 g/dl (31.0-36.0); MEAN CORPUSCULAR VOLUME 93 fL (82-100); MONOCYTES # (AUTO) 0.4 K/uL (0.1-1.30); MONOCYTES % (AUTO) 6.4 % (2.0-12.0); NEUTROPHILS # (AUTO) 2.5 K/uL (1.8-8.9); NEUTROPHILS % (AUTO) 44.7 % (43.0-81.0); PLATELET COUNT (AUTO) 155 K/uL (150-450); RED BLOOD CELL COUNT(AUTO) 3.68 MIL/uL (4.0-5.2); RED CELL DISTRIBUTION WIDTH 13.2 % (11.5-15.0); WHITE BLOOD COUNT (AUTO) 5.5 K/uL (4.3-11.0)
[2023-07-07 10:45] LABS: CALCIUM, SERUM 8.8 mg/dL (8.5-10.1); CARBON DIOXIDE 26 mmol/L (21-32); CHLORIDE 106 mmol/L (98-107); CREATININE 0.8 mg/dL (0.6-1.3); GLUCOSE 154 mg/dL (74-106); POTASSIUM 3.9 mmol/L (3.5-5.1); SODIUM SERUM 140 mmol/L (136-145); UREA NITROGEN, BLOOD 13 mg/dL (7-18)
[2023-07-07 10:50] LABS: ALANINE AMINOTRANSFERASE 44 U/L (12-78); ALBUMIN 3.6 g/dL (3.4-5.0); ALKALINE PHOSPHATASE 71 U/L (46-116); ASPARTATE AMINOTRANSFERASE 32 U/L (15-37); BILIRUBIN,DIRECT 0.1 mg/dL (0.0-0.2); BILIRUBIN,TOTAL 0.4 mg/dL (0.2-1.0); TOTAL PROTEIN, SERUM 7.7 g/dL (6.4-8.2)
[2023-07-07] MEDS ORDERED: NITROGLYCERIN PACKET 1 GM PACKET ONE (11:21)
[2023-07-07] MEDS: ASPIRIN 325 MG TABLET PO ONE (11:22)
[2023-07-07] MEDS ORDERED: ASPIRIN 325 MG TABLET ONE (11:22)
[2023-07-07] MEDS ORDERED: ACETAMINOPHEN ES 500 MG TABLET ONE (11:24)
[2023-07-07] MEDS: ACETAMINOPHEN ES 500 MG TABLET PO ONE (11:25)
[2023-07-07] MEDS: NITROGLYCERIN PACKET 1 GM PACKET TD ONE (11:30)
[2023-07-07 12:27] LABS: PREGNANCY TEST URINE QUAL NEGATIVE (NEGATIVE)
[2023-07-07] MEDS ORDERED: MORPHINE SULFATE INJ 2 MG/ML DISP.SYRIN ONE (16:46)
[2023-07-07] MEDS ORDERED: ENOXAPARIN SODIUM 40 MG/0.4 ML DISP.SYRIN SQ ONE (16:46)
[2023-07-07] MEDS: MORPHINE SULFATE INJ 2 MG/ML DISP.SYRIN IV PRN (16:48)
[2023-07-07] MEDS: ENOXAPARIN SODIUM 40 MG/0.4 ML DISP.SYRIN SQ SCH (16:51)
[2023-07-07] MEDS ORDERED: ADAL40PE5 SQ (18:40)
[2023-07-07] MEDS ORDERED: ACET-2812 PO (18:40)
[2023-07-07] MEDS ORDERED: IBUP-1955 PO (18:40)
[2023-07-07] MEDS ORDERED: PRED5TAB PO (18:40)
[2023-07-07] MEDS ORDERED: FAMO20TA8 PO (18:40)
[2023-07-07] MEDS: NITROGLYCERIN 0.4 MG/TAB BOTTLE SL PRN (21:36)
[2023-07-08 04:00] VITALS: BP 104/65; TEMP 98; O2SAT 98
[2023-07-08 08:00] VITALS: BP 108/81; TEMP 98.2; O2SAT 97
[2023-07-08 08:08] LABS: BASOPHILS % (AUTO) 0.4 % (0.0-2.0); EOSINOPHILS # (AUTO) 0.2 K/uL (0.0-0.7); EOSINOPHILS % (AUTO) 2.5 % (0.0-6.0); HEMATOCRIT 32 % (33-45); HEMOGLOBIN 10.7 g/dL (11.5-14.8); LYMPHOCYTES # (AUTO) 2.5 K/uL (0.8-4.8); LYMPHOCYTES % (AUTO) 39.3 % (20.0-44.0); MEAN CORPUSCULAR HEMOGLOBIN 32 PG (26.0-33.0); MEAN CORPUSCULAR HGB CONC 34 g/dl (31.0-36.0); MEAN CORPUSCULAR VOLUME 94 fL (82-100); MONOCYTES # (AUTO) 0.6 K/uL (0.1-1.30); MONOCYTES % (AUTO) 9.1 % (2.0-12.0); NEUTROPHILS # (AUTO) 3.2 K/uL (1.8-8.9); NEUTROPHILS % (AUTO) 48.7 % (43.0-81.0); PLATELET COUNT (AUTO) 146 K/uL (150-450); RED BLOOD CELL COUNT(AUTO) 3.39 MIL/uL (4.0-5.2); RED CELL DISTRIBUTION WIDTH 13.5 % (11.5-15.0); WHITE BLOOD COUNT (AUTO) 6.5 K/uL (4.3-11.0)
[2023-07-08 08:34] LABS: BILIRUBIN,TOTAL 0.6 mg/dL (0.2-1.0); CALCIUM, SERUM 8.2 mg/dL (8.5-10.1); CREATININE 0.6 mg/dL (0.6-1.3); MAGNESIUM 2.1 mg/dL (1.8-2.4); PHOSPHORUS 3.9 mg/dL (2.5-4.9); POTASSIUM 3.8 mmol/L (3.5-5.1)
[2023-07-08] MEDS: IV NS 0.9% 1,000 ML IV ONE (10:52)
[2023-07-08 10:54] LABS: THYROID STIMULATING HORMONE 2.745 uIU/mL (0.358-3.74)
[2023-07-08] MEDS ORDERED: IV NS 0.9% 1,000 ML IV SCH (11:00)
[2023-07-08 12:00] VITALS: BP 106/65; TEMP 98.1; O2SAT 99
[2023-07-08] MEDS ORDERED: CT SWABBABLE VALVE TRANS SET 1 EA INFUS.SET MC ONE (13:45)
[2023-07-08] MEDS ORDERED: NITROGLYCERIN 0.4 MG/TAB BOTTLE ONE (13:45)
[2023-07-08] MEDS ORDERED: METOPROLOL TARTRATE INJ 5 MG/5 ML AMPUL ONE ×2 (13:45→14:17)
[2023-07-08] MEDS ORDERED: IOHEXOL-350 100 ML VIAL IV ONE (13:45)
[2023-07-08] MEDS: METOPROLOL TARTRATE INJ 5 MG/5 ML AMPUL IVP PRN (14:00)
[2023-07-08] MEDS: NITROGLYCERIN 0.4 MG/TAB BOTTLE SL ONE (14:20)
[2023-07-08 16:00] VITALS: BP 107/67; TEMP 97.9; O2SAT 99
[2023-07-08] MEDS: METOPROLOL TARTRATE 50 MG TABLET PO SCH (16:52)
[2023-07-08] MEDS: ATORVASTATIN 10 MG TABLET PO SCH (16:53)
[2023-07-08 20:00] VITALS: BP 102/70; TEMP 97.9; O2SAT 99
[2023-07-09] VITALS: BP 102/54; TEMP 98; O2SAT 99
[2023-07-09 04:00] VITALS: BP 101/51; TEMP 98; O2SAT 99
[2023-07-09 07:02] LABS: BASOPHILS % (AUTO) 0.4 % (0.0-2.0); EOSINOPHILS # (AUTO) 0.2 K/uL (0.0-0.7); EOSINOPHILS % (AUTO) 3.2 % (0.0-6.0); HEMATOCRIT 35 % (33-45); HEMOGLOBIN 11.6 g/dL (11.5-14.8); LYMPHOCYTES # (AUTO) 2.5 K/uL (0.8-4.8); LYMPHOCYTES % (AUTO) 40.3 % (20.0-44.0); MEAN CORPUSCULAR HEMOGLOBIN 31 PG (26.0-33.0); MEAN CORPUSCULAR HGB CONC 34 g/dl (31.0-36.0); MEAN CORPUSCULAR VOLUME 94 fL (82-100); MONOCYTES # (AUTO) 0.5 K/uL (0.1-1.30); MONOCYTES % (AUTO) 8.7 % (2.0-12.0); NEUTROPHILS % (AUTO) 47.4 % (43.0-81.0); PLATELET COUNT (AUTO) 154 K/uL (150-450); RED BLOOD CELL COUNT(AUTO) 3.69 MIL/uL (4.0-5.2); RED CELL DISTRIBUTION WIDTH 13.6 % (11.5-15.0); WHITE BLOOD COUNT (AUTO) 6.2 K/uL (4.3-11.0)
[2023-07-09 07:23] LABS: ALBUMIN 3.1 g/dL (3.4-5.0); BILIRUBIN,TOTAL 0.4 mg/dL (0.2-1.0); CALCIUM, SERUM 8.4 mg/dL (8.5-10.1); CREATININE 0.6 mg/dL (0.6-1.3); MAGNESIUM 2.1 mg/dL (1.8-2.4); PHOSPHORUS 4.3 mg/dL (2.5-4.9); POTASSIUM 3.9 mmol/L (3.5-5.1); TOTAL PROTEIN, SERUM 7.3 g/dL (6.4-8.2)
[2023-07-09 08:00] VITALS: BP 100/58; TEMP 98.1; O2SAT 99
[2023-07-09] MEDS: ONDANSETRON HCL/PF 4 MG/2 ML VIAL IVP PRN (09:28)
[2023-07-09] MEDS: ACETAMINOPHEN 325 MG TABLET PO PRN (09:29)
[2023-07-09] MEDS ORDERED: ATOR10TA PO (11:29)
[2023-07-09] MEDS ORDERED: KEY,NONCONTROL,TO KEEP IN PYXI 1 EA MC ONE (11:38)
== END 2023-07-09 13:27 | disposition home or self-care (01) | DRG 190 ==
LOC: ER 10:06 → TELE 16:54 → TELE1 17:10 → MEDSG1 07-09 08:38
PROVIDERS: ADMIT Internal Medicine; ATTEND Nurse Practitioner Family
DX: I21.4 Non-ST elevation (NSTEMI) myocardial infarction (principal); E88.09 Other disorders of plasma-protein metabolism, not elsewhere classified; E87.70 Fluid overload, unspecified; D64.9 Anemia, unspecified; Z79.899 Other long term (current) drug therapy; M19.90 Unspecified osteoarthritis, unspecified site; R73.9 Hyperglycemia, unspecified; F43.9 Reaction to severe stress, unspecified; M89.8X9 Other specified disorders of bone, unspecified site
CPT/HCPCS: 36415; 71045-TC; 75574; 76700-TC; 76856-TC; 80048-TC; 80053-TC; 80061-TC; 80076-TC; 83690-TC; 83735-TC; 84100-TC; 84439-TC; 84443-TC; 84484-TC; 84703-TC; 85025-TC; 93307-TC; A4223; G0378; J1650; J2270; J2405; J3490; J7030; Q9967

== ENCOUNTER 2023-10-24 19:10 | Emergency (ER) | payer OTHER ==
[~2023-10-24] VITALS: Ht 152.4 cm; Wt 83.9 kg
[~2023-10-24 19:10] MED LIST changes: +ACET-2812 PO; +ADAL40PE5 SQ; +ATOR10TA PO; -CIPR-262 PO; -CYCL5TAB PO; +FAMO20TA8 PO; +IBUP-1955 PO; -MAG-55 PO; -NAPR-1164 PO; -PANT40TA2 PO; +PRED5TAB PO
[2023-10-24] MEDS ORDERED: IBUPROFEN 600 MG TABLET ONE (21:06)
[2023-10-24] MEDS ORDERED: ACETAMINOPHEN ES 500 MG TABLET ONE (21:06)
[2023-10-24] MEDS: ACETAMINOPHEN ES 500 MG TABLET PO ONE (21:23)
[2023-10-24] MEDS: IBUPROFEN 600 MG TABLET PO ONE (21:23)
[2023-10-24 22:34] VITALS: BP 113/81; TEMP 98; O2SAT 100
== END 2023-10-24 22:35 | disposition home or self-care (01) ==
LOC: ER 19:17
DX: S16.1XXA Strain of muscle, fascia and tendon at neck level, initial encounter (principal); Z86.79 Personal history of other diseases of the circulatory system; V43.52XA Car driver injured in collision with other type car in traffic accident, initial encounter; Y93.89 Activity, other specified; Y92.488 Other paved roadways as the place of occurrence of the external cause; Y99.8 Other external cause status
CPT/HCPCS: 72050-TC

== ENCOUNTER 2024-07-03 09:36 | Emergency (ER) | payer OTHER ==
[~2024-07-03] VITALS: Ht 152.4 cm; Wt 83.0 kg
[2024-07-03] MEDS ORDERED: CEFTRIAXONE 1GM BAG (ER ONLY) 50 ML IV ONE (10:17)
[2024-07-03 10:19] LABS: BASOPHILS % (AUTO) 0.4 % (0.0-2.0); EOSINOPHILS # (AUTO) 0.1 K/uL (0.0-0.7); EOSINOPHILS % (AUTO) 1.9 % (0.0-6.0); HEMATOCRIT 35 % (33-45); HEMOGLOBIN 11.6 g/dL (11.5-14.8); LYMPHOCYTES % (AUTO) 32.2 % (20.0-44.0); MEAN CORPUSCULAR HEMOGLOBIN 31 PG (26.0-33.0); MEAN CORPUSCULAR HGB CONC 34 g/dl (31.0-36.0); MEAN CORPUSCULAR VOLUME 93 fL (82-100); MONOCYTES # (AUTO) 0.5 K/uL (0.1-1.30); MONOCYTES % (AUTO) 7.9 % (2.0-12.0); NEUTROPHILS # (AUTO) 3.6 K/uL (1.8-8.9); NEUTROPHILS % (AUTO) 57.6 % (43.0-81.0); PLATELET COUNT (AUTO) 226 K/uL (150-450); RED BLOOD CELL COUNT(AUTO) 3.74 MIL/uL (4.0-5.2); RED CELL DISTRIBUTION WIDTH 14.4 % (11.5-15.0); WHITE BLOOD COUNT (AUTO) 6.3 K/uL (4.3-11.0)
[2024-07-03] MEDS: IV NS 0.9% 1,000 ML BAG IV ONE (10:21)
[2024-07-03] MEDS: CEFTRIAXONE 1GM BAG (ER ONLY) 50 ML IV ONE (10:21)
[2024-07-03 10:32] LABS: ALBUMIN 3.5 g/dL (3.4-5.0); BILIRUBIN,DIRECT 0.1 mg/dL (0.0-0.2); BILIRUBIN,TOTAL 0.4 mg/dL (0.2-1.0); CREATININE 0.6 mg/dL (0.6-1.3); POTASSIUM 4.1 mmol/L (3.5-5.1); TOTAL PROTEIN, SERUM 7.8 g/dL (6.4-8.2)
[2024-07-03] MEDS ORDERED: KETOROLAC TROMETHAMINE 15 MG/ML VIAL ONE (10:46)
[2024-07-03 10:55] LABS: APPEARANCE,URINE CLEAR (CLEAR); BILIRUBIN,URINE NEGATIVE (NEGATIVE); BLOOD, URINE NEGATIVE Ery/uL (NEGATIVE); COLOR,URINE YELLOW (YELLOW); KETONES,URINE NEGATIVE (NEGATIVE); LEUKOCYTE ESTERASE ,URINE NEGATIVE (NEGATIVE); NITRITE, URINE NEGATIVE (NEGATIVE); PROTEIN,URINE NEGATIVE (NEGATIVE); UGLUCOSE NEGATIVE (NEGATIVE); UROBILINOGEN,URINE 0.2 EU/dL (0.2)
[2024-07-03] MEDS: KETOROLAC TROMETHAMINE 15 MG/ML VIAL IV ONE (10:56)
[2024-07-03] MEDS ORDERED: NAPR-1164 PO (13:30)
[2024-07-03] MEDS ORDERED: CEPH-570 PO (13:30)
[2024-07-03] MEDS ORDERED: ONDANSETRON HCL/PF 4 MG/2 ML VIAL ONE (13:39)
[2024-07-03] MEDS ORDERED: MORPHINE SULFATE INJ 4 MG/ML DISP.SYRIN ONE (13:40)
[2024-07-03] MEDS: MORPHINE SULFATE INJ 2 MG/ML DISP.SYRIN IV ONE (13:46)
[2024-07-03] MEDS: ONDANSETRON HCL/PF 4 MG/2 ML VIAL IVP ONE (13:47)
[2024-07-03 14:14] VITALS: BP 108/73; TEMP 98.2; O2SAT 99
== END 2024-07-03 14:15 | disposition home or self-care (01) ==
LOC: ER 09:40
DX: N39.0 Urinary tract infection, site not specified (principal); R10.84 Generalized abdominal pain; R10.2 Pelvic and perineal pain; Z79.52 Long term (current) use of systemic steroids; Z79.899 Other long term (current) drug therapy
CPT/HCPCS: 99285; 74176; 96365; 96375; 85025; 80048; 87086; 83690; 80076; 81003; 36415; 84702; J1885; J2270; J2405; J7030; J0696